=== PATIENT | male | born 1995 | race Asian ===

== ENCOUNTER 2017-06-06 07:53 | Outpatient (CLI) | payer OTHER ==
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
== END 2017-06-06 07:54 | disposition home or self-care (01) ==
LOC: SCSMRI 07:53
PROVIDERS: ATTEND Family Medicine
DX: S09.90XD Unspecified injury of head, subsequent encounter (principal); J34.89 Other specified disorders of nose and nasal sinuses; V87.7XXD Person injured in collision between other specified motor vehicles (traffic), subsequent encounter
CPT/HCPCS: 70540; 70551